=== PATIENT | female | born 1960 | race Caucasian/White ===

== ENCOUNTER → 2018-08-10 | Outpatient (CLI) | payer BC ==
--- NOTE | 2018-08-13 14:33 | MM ---
Reason for exam: screening (asymptomatic). Last mammogram was performed 3 years and 3 months ago. History: Patient is postmenopausal. MG 3D Screening Mammo W/Cad Bilateral CC and MLO view(s) were taken. Prior study comparison: May 07, 2015, bilateral MG 3d screening mammo w/cad. March 06, 2013, CAD bilateral diagnostic mammogram. The breast tissue is heterogeneously dense. This may lower the sensitivity of mammography. No significant changes when compared with prior studies. ASSESSMENT: Benign, BI-RAD 2 RECOMMENDATION: Routine screening mammogram of both breasts in 1 year.
== END | disposition home or self-care (01) ==
LOC: RADMAMWWP 11:10
PROVIDERS: ATTEND Family Medicine
DX: Z12.31 Encounter for screening mammogram for malignant neoplasm of breast (principal)
CPT/HCPCS: 77063; 77067

== ENCOUNTER → 2023-03-09 | Outpatient (CLI) | payer OTHER ==
--- NOTE | 2023-03-09 11:21 | P.SLEEP ---
History of Present Illness DATE: 03/09/2023 CONSULTATION/NEW PATIENT EVALUATION HISTORY OF PRESENT ILLNESS/SLEEP-WAKE EVALUATION: 63-year-old lady had been ev aluated in the sleep center for possible obstructive sleep apnea hypopnea syndrome. Patient has sleep study about 10 years ago, was diagnosed with sleep apnea, was started on CPAP, but stopped using CPAP after short period of time of usage. SLEEP SCHEDULE: Usually sleep schedule from 8 PM to 6 AM basically 7 days a week. FALLING ASLEEP: Patient does have problems with falling asleep, has TV set and bedroom. DURING SLEEP: Patient usually sleeps on the side position with snoring and multiple awakenings from sleep with episodes of restless legs, palpitations, sweating. No history of hypnogogical hallucinations, sleep paralysis, or cataplexy. DURING THE DAY/WAKE STATE: Patient feels sleepiness during the day. [place] sleepiness scale is 9. Usually patient doesn't take naps. PAST MEDICAL HISTORY: Hypertension, lung nodules, acid reflux, hyperlipidemia. PAST SURGICAL HISTORY: Left hip replacement, sinuses surgery. MEDICATIONS: Losartan 50 mg once a day, metoprolol 100 mg once a day, hydrochlorothiazide. SOCIAL HISTORY: Positive for smoking for about 40 pack years, quit nicotine 2 years ago, continue wiping, alcohol consumption occasional. FAMILY HISTORY: Snoring. REVIEW OF SYSTEMS: Multiple awakenings from sleep, sleepiness during the day. No fevers. No double vision. No recent chest pain. No shortness of breath. No abdominal pain. No bleeding episodes. No blood in urine. No seizure episodes. PHYSICAL EXAMINATION: GENERAL: A pleasant patient without any distress. VITAL SIGNS: BP 180/104, HR 86, RR 12, weight 156.4 pounds, height 5 foot 5 inches, body mass index 29.5. HEENT: PERRLA, EOMI. Evaluation of oropharynx showed tongue protrudes midline, low position of soft palate Mallampati 4. NECK: Supple. No JVD. Thyroid is not palpable. 15 inches in circumference. LUNGS: Clear to percussion and to auscultation. Good air exchange. No wheezing or rhonchi. HEART: S1, S2 regular. No murmurs, gallops or rubs. ABDOMEN: Soft and nontender. Bowel sounds are present. No organomegaly appreciated. EXTREMITIES: No clubbing or cyanosis. OPERATIVE SUPERVISOR: Awake, alert, and oriented x3. Cranial nerves 2 to 7 intact. There is no fasciculation or atrophy noted. No focal deficits observed. ASSESSMENT: 1. Snoring, multiple awakenings from sleep, extremely low position of soft palate Mallampati 4, history of obstructive sleep apnea hypopnea syndrome in the past. Obstructive sleep apnea hypopnea syndrome. 2. Hypertension. 3. Hyperlipidemia. 4. Restless leg symptoms. 5 lung nodules. 6 . Acid reflux. 7. Status post left hip replacement. 8. Status post sinuses surgery. 9. Overweight, borderline to obesity, body mass index 29.5. PLAN: 1. Polysomnography for evaluation of patient's breathing during sleep. 2. CPAP/BiPAP titration if sleep study confirms obstructive sleep apnea- hypopnea syndrome. 3. Preferable position during sleep on the side. 4. No driving if patient feels any sleepiness. Patient is aware of civil and criminal liability for unsafe driving. 5. Sleep hygiene with regular sleep time for at least 7.5-8 hours. 6. Watching and losing weight. Thank you very much for referring this patient for consultation. Sincerely, Aung Rendon MD, PhD, FAASM. Diplomat of [employer], Sleep Medicine Board by [employer] Student Career Development Specialist of [facility] [place] Past Medical History Past Medical History: Hypertension, Osteoarthritis (OA), Sleep Apnea/CPAP/BIPAP Additional Past Medical History / Comment(s): hx heart murmur, currently has gout left foot-big toe, degenerative disc disease neck & back History of Any Multi-Drug Resistant Organisms: None Reported Additional Past Surgical History / Comment(s): deviated septum surg. Past Anesthesia/Blood Transfusion Reactions: No Reported Reaction Past Psychological History: No Psychological Hx Reported Past Alcohol Use History: Heavy Past Drug Use History: None Reported Medications and Allergies Home Medications Medication Instructions Recorded Confirmed Type Losartan [Cozaar] 50 mg PO DAILY 04/25/14 06/03/14 History Metoprolol Succinate (ER) [Toprol 100 mg PO DAILY 04/25/14 06/03/14 History XL] Triamterene-Hctz 37.5-25Mg 1 each PO DAILY 04/25/14 06/03/14 History [Dyazide 37.5-25 Capsule] allopurinoL [Zyloprim] 100 mg PO DAILY PRN 05/31/14 06/03/14 History Rivaroxaban [Xarelto] 10 mg PO DAILY #30 tab 06/03/14 Rx Allergies Allergy/AdvReac Type Severity Reaction Status Date / Time No Known Allergies Allergy Verified 06/03/14 11:16 Sleep Note - Sleep Note Sleep Note: Temperature: Pulse Rate: Respiratory Rate: Blood Pressure: SpO2: Height: Weight: BMI: Neck Circumference:
== END ==
LOC: 3 N SLEEP 10:47
PROVIDERS: ATTEND Internal Medicine
DX: G47.33 Obstructive sleep apnea (adult) (pediatric) (principal); I10 Essential (primary) hypertension; E66.3 Overweight; E78.5 Hyperlipidemia, unspecified; G25.81 Restless legs syndrome; K21.9 Gastro-esophageal reflux disease without esophagitis; R91.8 Other nonspecific abnormal finding of lung field; Z98.890 Other specified postprocedural states; Z68.29 Body mass index [BMI] 29.0-29.9, adult; Z87.891 Personal history of nicotine dependence; Z79.899 Other long term (current) drug therapy
CPT/HCPCS: 99211

== ENCOUNTER 2023-03-23 19:40 | Outpatient (CLI) | payer OTHER ==
--- NOTE | 2023-03-24 15:44 | P.PCN ---
Description of Procedure: POLYSOMNOGRAPHY REPORT PROCEDURE(S)/DATE(S): Polysomnography 03/23/2023 CLINICAL: Patient has been seen in the sleep center for evaluation of obstructive sleep apnea-hypopnea syndrome. Please see my consultation. Sleep study has been done for evaluation of patient breathing during the sleep. PROCEDURE: The standard montage for clinical polysomnography included the electroencephalogram, the electrooculogram, the mentalis surface electromyography and Lead II cardiography. The respiratory battery consisted of measurements of nasal/buccal air flow, pressure transducer measurements from nose, thoracic and/or abdominal effort and intercostal surface electromyography. Video monitoring has been done to check for any parasomnia events. Nocturnal oxyhemoglobin saturations were obtained by finger oximetry. Step-soares titration with positive airway pressure was utilized to control the respiratory events, if necessary. RESULTS: During the diagnostic sleep study sleep efficiency was normal 91.0 %. Latency to sleep onset was normal 18.0 min. Sleep architecture showed stage NI was normal 6.7 %, Delta sleep was absent 0 %, REM sleep was high 31.3 %. Respiratory channel showed 3 obstructive apneas, 0 mixed apneas, 2 central apneas, 42 hypopneas with lowest oxygen level 81 %. Total apnea hypopnea index was 6.5. Heart rate was in the range between 60 and 71, average 65. EMG showed no periodic limb movements. IMPRESSIONS: 1. Obstructive sleep apnea hypopnea syndrome in mild range with loud snoring have been documented during the sleep study. 2. No significant periodic limb movements have been documented. 3. Hypertension. Please see other impressions from consultation PLAN: 1. The patient will have AutoPAP treatment for correction of respiratory abnormalities during the sleep. 2. I will see patient for follow-up visit related clinical response on treatment, compliance with treatment and make any decision adjustments related to mask fitting pressure and humidification. 3. Sleep hygiene with regular time in bed for at least 7-1/2 hours. 4. No driving if feeling sleepiness. Thank you very much for allowing me to participate in the management of your patient. Sincerely, Aung Rendon MD, PhD, FAASM. Diplomat of [place] [employer], Sleep Medicine Board by [place] [employer] Surety Bond Agent of [facility] [place]
== END 2023-03-24 05:50 | disposition home or self-care (01) ==
LOC: 3 N SLEEP 19:40
PROVIDERS: ATTEND Internal Medicine
DX: G47.33 Obstructive sleep apnea (adult) (pediatric) (principal); I10 Essential (primary) hypertension; Z79.899 Other long term (current) drug therapy; Z87.891 Personal history of nicotine dependence
CPT/HCPCS: 95810

== ENCOUNTER → 2023-07-04 | Outpatient (CLI) | payer OTHER ==
--- NOTE | 2023-07-04 11:07 | P.PN ---
Subjective DATE: 07/04/2023 FOLLOW UP VISIT. Patient with obstructive sleep apnea hypopnea syndrome return to sleep center for follow-up visit. Recently patient had sleep study which documented obstructive sleep apnea hypopnea syndrome. Patient was initiated on PAP therapy and today is first visit after treatment was started. Patient was able to use PAP equipment every night for the whole night. The patient does not have significant problems with the mask, PAP pressure and humidification. [place] sleepiness scale is 7, which is normal. Patient feels better while she started to use his CPAP equipment with relationship to her sleep and feeling during the day. I checked information from PAP unit. PAP unit pressure 5-12, average 11.4 cm H2O. Usage is 100% and 90 % for more then 4 hours, average 5.5 hours per night. Leak is 12.7 l/m, which is in acceptable range. Apnea Hypopnea Index is 2.6, which is normal. MEDICATIONS:1. Losartan 50 mg once a day 2. Metoprolol 100 mg once a day 3. Hydrochlorothiazide During physical exam: GENERAL: A pleasant patient without any distress. VITAL SIGNS: BP 164/96, HR 75, RR 12 , weight 160.8, temperature 97.8, oxygen saturation at room air 100% . HEENT: PERRLA, EOMI.low position of soft palate, Mallapati 4 . NECK: Supple. No JVD. LUNGS: Clear to percussion and to auscultation. Good air exchange. No wheezing or rhonchi. HEART: S1, S2 regular. ABDOMEN: Soft and nontender.[] EXTREMITIES: No clubbing or cyanosis. CLEAN RICE GRADER AND REEL TENDER: Awake, alert, and oriented x3. No focal deficit. Impressions: 1. Obstructive sleep apnea-hypopnea syndrome. Patient demonstrated great compliance with treatment, benefiting from treatment. 2. Hypertension. 3. Hyperlipidemia. 4. History of restless leg symptoms. 5. Lung nodules. 6. Acid reflux. 7. Status post left hip replacement. 8. Status post sinus surgery. Plan: 1. Continue using PAP equipment every night for the whole night. 2. To change air filter at least 1-2 times per month. 3. PAP unit should stay lower then position of the head. 4. Advised patient to remove all remaining water from humidifier canister daily and make it dry after each usage. Refill canister with fresh distilled water before each usage. 5. Sleep hygiene with regular time in bed for at least 8 hours. 6. Precautions related to driving. No driving if feel any sleepiness. 7. I will maintain prescription for PAP supplies including mask, tube, filters. 8. Follow up visit in 6 months or earlier if patient has any problems. 9. Watching weight. Thank you very much for allowing me to participate in the management of your patient. Aung Rendon MD, PhD, FAASM. Diplomat of [employer], Sleep Medicine Board by [employer] Check Out Cashier of [facility] [place]
== END ==
LOC: 3 N SLEEP 10:32
PROVIDERS: ATTEND Internal Medicine
DX: G47.33 Obstructive sleep apnea (adult) (pediatric) (principal); I10 Essential (primary) hypertension; E78.5 Hyperlipidemia, unspecified; G25.81 Restless legs syndrome; R91.8 Other nonspecific abnormal finding of lung field; K21.9 Gastro-esophageal reflux disease without esophagitis; Z79.899 Other long term (current) drug therapy; Z96.642 Presence of left artificial hip joint; Z98.890 Other specified postprocedural states; Z87.891 Personal history of nicotine dependence
CPT/HCPCS: 99212

== ENCOUNTER → 2024-03-21 | Outpatient (CLI) | payer OTHER ==
[2024-03-21 11:11] VITALS: BP 127/73; PULSE 56; RESP 16; TEMP 158.4
--- NOTE | 2024-03-21 11:25 | P.PROGSL ---
Subjective DATE: 03/21/2024 FOLLOW UP VISIT. Patient with obstructive sleep apnea hypopnea syndrome return to sleep center for follow-up visit. Information from previous visit have been reviewed. Patient is using PAP equipment every night for the whole night, getting PAP supplies in time. The patient does not have significant problems with the mask, PAP unit and humidification. [place] sleepiness scale is 9, which is borderline. I checked information from PAP unit. PAP unit pressure 5-12, average 11.2 cm H2O. Usage is 96% and 70% for more then 4 hours, average 5.2 hours per night. Leak is 6 l/m, which is in acceptable range. Apnea Hypopnea Index is 2.1, which is normal. MEDICATIONS have been reviewed, please see below. During physical exam: GENERAL: A pleasant patient without any distress. VITAL SIGNS: Please see below, weight is 158.4 lbs. HEENT: PERRLA, EOMI.low position of soft palate, Mallapati 4 . NECK: Supple. No JVD. LUNGS: Clear to percussion and to auscultation. Good air exchange. No wheezing or rhonchi. HEART: S1, S2 regular. ABDOMEN: Soft and nontender.[] EXTREMITIES: No clubbing or cyanosis. WELDING MACHINE OPERATOR ULTRASONIC: Awake, alert, and oriented x3. No focal deficit. Impressions: 1. Obstructive sleep apnea-hypopnea syndrome. Patient demonstrated good compliance with treatment, benefiting from treatment. 2. Hypertension. 3. Hyperlipidemia. 4. History of restless legs. 5. Lung nodules, no changes according to patient. 6. Acid reflux. 7. Status post sinus surgery. 8. Status post left hip replacement. Plan: 1. Continue using PAP equipment every night for the whole night. 2. Sleep hygiene with regular time in bed for at least 7.5-8 hours 3. PAP unit should stay lower then position of the head. 4. Advised patient to remove all remaining water from humidifier canister daily and make it dry after each usage. Refill canister with fresh distilled water before each usage. 5. Watching weight. 6. Precautions related to driving. No driving if feel any sleepiness. 7. I will maintain prescription for PAP supplies including mask, tube, filters. 8. Follow up visit in 6 months or earlier if patient has any problems. Thank you very much for allowing me to participate in the management of your patient. Aung Rendon MD, PhD, FAASM. Diplomat of [place] [employer], Sleep Medicine Board by [place] [employer] Security Solutions Engineer of [facility] [place] Objective - Vital Signs Vital Signs: Vital Signs Temp 158.4 F H 03/21/24 11:09 Pulse 56 L 03/21/24 11:09 Resp 16 03/21/24 11:09 BP 127/73 03/21/24 11:09 Pulse Ox 97 03/21/24 11:09 FiO2 Intake & Output 03/20/24 03/21/24 03/21/24 18:59 06:59 18:59 Weight 71.781 kg Home Medications: Home Medications Medication Instructions Recorded Confirmed Type Losartan [Cozaar] 50 mg PO DAILY 04/25/14 03/21/24 History Metoprolol Succinate (ER) [Toprol 100 mg PO DAILY 04/25/14 06/03/14 History XL] Triamterene-Hctz 37.5-25Mg 1 each PO DAILY 04/25/14 03/21/24 History [Dyazide 37.5-25 Capsule] allopurinoL [Zyloprim] 100 mg PO DAILY PRN 05/31/14 06/03/14 History Rivaroxaban [Xarelto] 10 mg PO DAILY #30 tab 06/03/14 Rx Metoprolol Tartrate [Lopressor] 100 mg PO DAILY 03/21/24 03/21/24 History
== END ==
LOC: 3 N SLEEP 10:47
PROVIDERS: ATTEND Internal Medicine
CPT/HCPCS: 99212